=== PATIENT | female | born 1950 | race Caucasian/White ===

== ENCOUNTER 2019-05-16 18:33 | Emergency (ER) | payer OTHER ==
[~2019-05-16] VITALS: Ht 160 cm; Wt 68.0 kg
[2019-05-16 20:39] VITALS: BP_SYST 157
--- NOTE | 2019-05-16 20:47 | NUR ---
Pt placed to ER bed 08, to [facility], report given to DARON Tim.
--- NOTE | 2019-05-16 21:10 | NUR ---
Pt placed urine specimen to bedside, but not present to room.
--- NOTE | 2019-05-16 21:30 | NUR ---
Sent Pt Urine sample to lab, however, Pt might of LWBS. Dr. Wilson and scrap charger aware
--- NOTE | 2019-05-16 21:57 | NUR ---
Pt has been in waiting room. Brought pt back to ER bed 08, report given to DARON Tim.
--- NOTE | 2019-05-16 22:22 | NUR ---
Dr. Wilson bedside for Pt eval
--- NOTE | 2019-05-16 22:25 | NUR ---
Pt BIB family to ED C/O sharp intermittent 9/10 LLQ pain without radiation. Pt took Pepto Bismol and Motrin without improvement in pain. Pt denies fever, chills, nausea or vomiting. Pt with diarrhea. Pt denies bloody diarrhea. No other injuries and or complaints noted VSS no s/s of acute distress Resting on gurney rails up
[2019-05-16] MEDS ORDERED: KETOROLAC TROMETHAMINE 30 MG VIAL IVP ONE (22:30)
[2019-05-16 22:41] LABS: BILIRUBIN,URINE NEGATIVE (NEGATIVE); BLOOD, URINE NEGATIVE (NEGATIVE); CLARITY/URINE CLEAR (CLEAR); COLOR,URINE YELLOW (YELLOW); GLUCOSE,URINE NEGATIVE (NEGATIVE); KETONES,URINE NEGATIVE (NEGATIVE); LEUKOCYTE ESTERASE ,URINE NEGATIVE (NEGATIVE); NITRITE, URINE NEGATIVE (NEGATIVE); PH,URINE 5.5 (5.0-8.0); PROTEIN URINE TRACE (NEGATIVE)
--- NOTE | 2019-05-16 23:00 | NUR ---
Pt taken to Radiology in stable condition
[2019-05-16 23:03] LABS: HEMATOCRIT 47.4 % (36-48); HEMOGLOBIN 15.8 g/dL (12.0-16.0); MEAN CORPUSCULAR HEMOGLOBIN 28 pg (27-31); MEAN CORPUSCULAR HGB CONC 33 % (32-36); MEAN CORPUSCULAR VOLUME 85 fL (79.0-98.0); PLATELET COUNT (AUTO) 371 K/uL (130-430); RED BLOOD CELL COUNT(AUTO) 5.57 MIL/uL (4.2-6.2); RED CELL DISTRIBUTION WIDTH 15.1 % (9.0-15.0); WHITE BLOOD COUNT (AUTO) 18.3 K/uL (4.8-10.8)
--- NOTE | 2019-05-16 23:05 | NUR ---
Pt back from Radiology, well toelrated
[2019-05-16 23:20] LABS: CALCIUM 9.3 mg/dL (8.4-11.0); CREATININE 0.85 mg/dL (0.55-1.30); POTASSIUM 3.5 mmol/L (3.5-5.1)
[2019-05-16 23:23] LABS: ALBUMIN 3.5 g/dL (3.4-4.8)
--- NOTE | 2019-05-16 23:28 | NUR ---
VSS no s/s of acute distress Resting on gurney rails up
[2019-05-16 23:35] LABS: ATYPICAL LYMPHOCYTES % 3 % (0-0); BASOPHILS % (MANUAL) 0 % (0-2); EOSINOPHILS % (MANUAL) 1 % (0-7); LYMPHOCYTES % (MANUAL) 13 % (20-46); MONOCYTES % (MANUAL) 13 % (0-11)
[2019-05-17 00:45] VITALS: BP_SYST 157
--- NOTE | 2019-05-17 00:45 | NUR ---
Patient given written and verbal discharge instructions and verbalizes understanding. ER MD discussed with patient the results and treatment provided. Patient in stable condition. ID arm band removed. IV catheter removed intact and dressing applied, no active bleeding. Rx of Motrin, [place], Flagyl and Cipro given. Patient educated on pain management and to follow up with PMD. Pain Scale 0/10 Opportunity for questions provided and answered. Medication side effect fact sheet provided.
== END 2019-05-17 00:45 | disposition home or self-care (01) ==
LOC: SED 18:33
DX: R10.32 Left lower quadrant pain (principal); K57.92 Diverticulitis of intestine, part unspecified, without perforation or abscess without bleeding; I10 Essential (primary) hypertension; E07.9 Disorder of thyroid, unspecified; F17.200 Nicotine dependence, unspecified, uncomplicated
CPT/HCPCS: 36415; 74176; 80053; 81003; 83690; 85007; 85027; 96374; 99284; J1885